=== PATIENT | female | born 1980 | race Caucasian/White ===

== ENCOUNTER 2017-12-10 12:57 | Emergency (ER) | payer MEDICAID ==
[~2017-12-10] VITALS: Ht 172.7 cm; Wt 62.0 kg
[2017-12-10 12:59] VITALS: BP 133/88
[2017-12-10] MEDS ORDERED: FLUT16SP2 BOTHNARES (14:09)
[2017-12-10] MEDS ORDERED: TOBR5DRO2 RIGHTEYE (14:09)
[2017-12-10] MEDS ORDERED: HYDR28CR14 TOP (14:09)
== END 2017-12-10 14:28 | disposition home or self-care (01) ==
LOC: ER 12:57
DX: S30.860A Insect bite (nonvenomous) of lower back and pelvis, initial encounter (principal); H10.9 Unspecified conjunctivitis; J30.9 Allergic rhinitis, unspecified; F15.10 Other stimulant abuse, uncomplicated; W57.XXXA Bitten or stung by nonvenomous insect and other nonvenomous arthropods, initial encounter; Y93.89 Activity, other specified; Y92.89 Other specified places as the place of occurrence of the external cause; Y99.8 Other external cause status
CPT/HCPCS: 99283